=== PATIENT | female | born 1990 | race Caucasian/White ===

== ENCOUNTER 2017-07-18 12:30 | Emergency (ER) | payer SELFPAY ==
[2017-07-18] MEDS ORDERED: IPRATROPIUM/ALBUTEROL 0.5-2.5 MG/3 ML AMPUL NEB ONE (12:52)
[2017-07-18] MEDS ORDERED: PREDNISONE 20 MG TABLET PO ONE (12:52)
[2017-07-18] MEDS ORDERED: KETOROLAC TROMETHAMINE 60 MG/2 ML SDV IM ONE (12:53)
--- NOTE | 2017-07-18 12:56 | ER Document Report ---
ED General - General Chief Complaint: Cough Stated Complaint: VOMITING,DIARRHEA Time Seen by Provider: 07/18/17 12:37 Mode of Arrival: Ambulatory Information source: Patient Notes: 27-year-old female presents with complaints 1 week duration of cough shortness of breath productive green associated with nausea vomiting diarrhea. Patient denies any fevers or chills. TRAVEL OUTSIDE OF THE [place] IN LAST 30 DAYS: No - HPI Onset: Last week Onset/Duration: Persistent Quality of pain: Cramping Severity: Mild Pain Level: 1 Associated symptoms: Body/muscle aches, Productive cough, Shortness of breath Exacerbated by: Denies Relieved by: Denies Similar symptoms previously: No Recently seen / treated by doctor: No - Related Data Allergies/Adverse Reactions: No Known Allergies Allergy (Verified 07/18/17 12:46) Past Medical History - Social History Smoking Status: Never Smoker Cigarette use (# per day): No Chew tobacco use (# tins/day): No Smoking Education Provided: No Frequency of alcohol use: None Drug Abuse: Marijuana Family History: Reviewed & Not Pertinent Patient has suicidal ideation: No Patient has homicidal ideation: No Pulmonary Medical History: Denies: Hx Tuberculosis Renal/ Medical History: Denies: Hx Ovarian Cysts, Hx Peritoneal Dialysis, Hx Pelvic Inflammatory Disease Malignancy Medical History: Denies: Hx Breast Cancer, Hx Cervical Cancer, Hx Ovarian Cancer GI Medical History: Reports: Hx Gastroesophageal Reflux Disease, Hx Ulcer - 2009. Denies: Hx Hiatal Hernia Psychiatric Medical History: Reports: Hx Attention Deficit Hyperactivity Disorder, Hx Bipolar Disorder, Hx Depression Denies: Hx Post Traumatic Stress Disorder, Hx Schizophrenia Infectious Medical History: Denies: Hx HIV Past Surgical History: Reports: Hx Section - x2, Hx Tonsillectomy - Immunizations Hx Diphtheria, Pertussis, Tetanus Vaccination: - unk Review of Systems - Review of Systems Notes: REVIEW OF SYSTEMS: CONSTITUTIONAL : Denies fever, chills, or sweats. Denies recent illness. EENT: Denies eye, ear, throat, or mouth pain or symptoms. Denies nasal or sinus congestion or discharge. Denies throat, tongue, or mouth swelling or difficulty swallowing. CARDIOVASCULAR: Denies chest pain. Denies palpitations or racing or irregular heart beat. Denies ankle edema. RESPIRATORY: admits ot productive cough sob GASTROINTESTINAL: admits ot nausea vomiting GENITOURINARY: Denies difficulty urinating, painful urination, burning, frequency, blood in urine, or discharge. FEMALE GENITOURINARY: Denies vaginal bleeding, heavy or abnormal periods, irregular periods. Denies vaginal discharge or odor. MUSCULOSKELETAL: Denies back or neck pain or stiffness. Denies joint pain or swelling. SKIN: Denies rash, lesions or sores. HEMATOLOGIC : Denies easy bruising or bleeding. LYMPHATIC: Denies swollen, enlarged glands. NEUROLOGICAL: Denies confusion or altered mental status. Denies passing out or loss of consciousness. Denies dizziness or lightheadedness. Denies headache. Denies weakness or paralysis or loss of use of either side. Denies problems with gait or speech. Denies sensory loss, numbness, or tingling. Denies seizures. PSYCHIATRIC: Denies anxiety or stress. Denies depression, suicidal ideation, or homicidal ideation. ALL OTHER SYSTEMS REVIEWED AND NEGATIVE. PHYSICAL EXAMINATION: GENERAL: Well-appearing, well-nourished and in no acute distress. HEAD: Atraumatic, normocephalic. EYES: Pupils equal round and reactive to light, extraocular movements intact, conjunctiva are normal. ENT: Nares patent, oropharynx clear without exudates. Moist mucous membranes. NECK: Normal range of motion, supple without lymphadenopathy LUNGS: Decreased breath sounds all throughout HEART: Regular rate and rhythm without murmurs ABDOMEN: Soft, nontender, nondistended abdomen. No guarding, no rebound. No masses appreciated. Female : deferred Musculoskeletal: Normal range of motion, no pitting or edema. No cyanosis. NEUROLOGICAL: Cranial nerves grossly intact. Normal speech, normal gait. Normal sensory, motor exams PSYCH: Normal mood, normal affect. SKIN: Warm, Dry, normal turgor, no rashes or lesions noted. Dictation was performed using [employer] voice recognition software Physical Exam - Vital signs Vitals: Temp Pulse Resp BP Pulse Ox 98 F 103 H 16 120/88 H 98 07/18/17 12:32 07/18/17 12:32 07/18/17 12:32 07/18/17 12:32 07/18/17 12:32 Course - Re-evaluation Re-evalutation: 07/18/17 12:55 Patient has probable pneumonia versus bronchitis, she is no DVT PE risk factors , influenza chest x-ray pending - Vital Signs Vital signs: Temp Pulse Resp BP Pulse Ox 98 F 103 H 16 120/88 H 98 07/18/17 12:32 07/18/17 12:32 07/18/17 12:32 07/18/17 12:32 07/18/17 12:32 Discharge - Discharge Clinical Impression: Bronchitis, SOB (shortness of breath) Instructions: Bronchitis With Bronchospasm (Wheezing) ([facility]), Bronchitis ([facility]) Additional Instructions: Follow up with your physician tomorrow for further care or return to the ED IMMEDIATELY if symptoms worsen or new concerns occur. If you cannot afford to follow up with your primary care physician a list of low cost clinics have been provided at the end of your discharge papers as well. Prescriptions: Azithromycin 250 mg PO DAILY #6 tablet Prednisone 60 mg PO DAILY 5 Days tablet Forms: Return to Work
--- NOTE | 2017-07-18 14:46 | RADIOLOGY REPORT (SQ) ---
EXAM DESCRIPTION: CHEST PA/LAT COMPLETED DATE/TIME: 07/18/2017 2:34 pm REASON FOR STUDY: COUGH, SOB COMPARISON: 2013. TECHNIQUE: Frontal and lateral radiographic views of the chest acquired. NUMBER OF VIEWS: Two view. LIMITATIONS: None. FINDINGS: LUNGS AND PLEURA: No opacities, masses or pneumothorax. No pleural effusion. MEDIASTINUM AND HILAR STRUCTURES: No masses or contour abnormalities. HEART AND VASCULAR STRUCTURES: Heart normal size. No evidence for failure. BONES: No acute findings. HARDWARE: None in the chest. OTHER: No other significant finding. IMPRESSION: NO SIGNIFICANT RADIOGRAPHIC FINDING IN THE CHEST. TECHNICAL DOCUMENTATION: JOB ID: [id number] [employer]- All Rights Reserved
[2017-07-18] MEDS ORDERED: ALBUTEROL SULFATE HFA (90 MCG/PUFF) 8 GM MDI (1 MDI/ER DISP) IH PRN (15:02)
[2017-07-18 15:07] VITALS: BP 103/68
== END 2017-07-18 15:15 | disposition home or self-care (01) ==
LOC: ER 12:30
DX: J40 Bronchitis, not specified as acute or chronic (principal); R05 Cough; R06.02 Shortness of breath; R11.2 Nausea with vomiting, unspecified; R19.7 Diarrhea, unspecified; M79.1 Myalgia; Z87.19 Personal history of other diseases of the digestive system
CPT/HCPCS: 94640; 99284; 96372; 87804; 71020; J1885; J7512; J3490; J7620

== ENCOUNTER 2018-05-23 21:17 | Emergency (ER) | payer MEDICAID, OTHER ==
[2018-05-23 21:51] LABS: ABSOLUTE LYMPHOCYTES (AUTO) 1.6 10^3/uL (0.5-4.7); ABSOLUTE MONOCYTES (AUTO) 0.5 10^3/uL (0.1-1.4); ABSOLUTE NEUT (AUTO) 3.9 10^3/uL (1.7-8.2); BASOPHILS % (AUTO) 0.3 % (0-2); EOSINOPHILS % (AUTO) 0.5 % (0-6); HEMATOCRIT 37.9 % (36.0-47.0); HEMOGLOBIN 12.9 g/dL (12.0-15.5); LYMPHOCYTES % (AUTO) 25.7 % (13-45); MEAN CORPUSCULAR HEMOGLOBIN 30.9 pg (27.0-33.4); MEAN CORPUSCULAR HGB CONC 34.1 g/dL (32.0-36.0); MEAN CORPUSCULAR VOLUME 91 fl (80-97); MONOCYTES % (AUTO) 8.4 % (3-13); PLATELET COUNT 250 10^3/uL (150-450); RED BLOOD COUNT 4.18 10^6/uL (3.72-5.28); RED CELL DISTRIBUTION WIDTH 12.8 % (11.5-14.0); SEGMENTED NEUTROPHILS % (AUTO) 65.1 % (42-78); TOTAL CELLS COUNTED % (AUTO) 100 %
[2018-05-23 22:00] LABS: APPEARANCE,URINE SLIGHTLY-CLOUDY; BILIRUBIN,URINE NEGATIVE (NEGATIVE); COLOR,URINE YELLOW; GLUCOSE, URINE >=500 mg/dL (NEGATIVE); KETONES,URINE TRACE mg/dL (NEGATIVE); LEUKOCYTE ESTERASE,URINE NEGATIVE (NEGATIVE); NITRITE,URINE NEGATIVE (NEGATIVE); PROTEIN,URINE NEGATIVE (NEGATIVE); URINE SPECIFIC GRAVITY 1.023; UROBILINOGEN,URINE NEGATIVE mg/dL (<2.0)
--- NOTE | 2018-05-23 23:09 | ER Document Report ---
ED General - General Chief Complaint: OB Problem (<20wks) Stated Complaint: VAGINAL BLEEDING Time Seen by Provider: 05/23/18 23:05 TRAVEL OUTSIDE OF THE [place] IN LAST 30 DAYS: No - HPI Notes: Patient is a 28-year-old female approximately 6 weeks who presents to the ED complaining of vaginal bleeding that began this evening. Patient states that she is still eating and drinking without any difficulties. She is urinating normally and having normal bowel movements. She denies any drug allergies or other significant past medical history. Denies any IV drug use. Denies any headache, fever, URI, sore throat, chest pain, palpitations, syncope, cough, shortness of breath, wheeze, dyspnea, abd pain, nausea/vomiting/ diarrhea, urinary retention, dysuria, hematuria, back pain, loss of control of bowel or bladder, numbness/tingling, saddle anesthesia, muscle paralysis/ weakness, or rash. - Related Data Allergies/Adverse Reactions: No Known Allergies Allergy (Verified 07/18/17 12:46) Past Medical History - Social History Smoking Status: Unknown if Ever Smoked Family History: Reviewed & Not Pertinent Pulmonary Medical History: Denies: Hx Tuberculosis Renal/ Medical History: Denies: Hx Ovarian Cysts, Hx Peritoneal Dialysis, Hx Pelvic Inflammatory Disease Malignancy Medical History: Denies: Hx Breast Cancer, Hx Cervical Cancer, Hx Ovarian Cancer GI Medical History: Reports: Hx Gastroesophageal Reflux Disease, Hx Ulcer - 2008. Denies: Hx Hiatal Hernia Psychiatric Medical History: Reports: Hx Attention Deficit Hyperactivity Disorder, Hx Bipolar Disorder, Hx Depression Denies: Hx Post Traumatic Stress Disorder, Hx Schizophrenia Infectious Medical History: Denies: Hx HIV Past Surgical History: Reports: Hx Section - x2, Hx Tonsillectomy - Immunizations Hx Diphtheria, Pertussis, Tetanus Vaccination: - unk Review of Systems - Review of Systems -: Yes All other systems reviewed and negative Physical Exam - Vital signs Vitals: Temp Pulse Resp BP Pulse Ox 98.5 F 91 16 110/65 99 05/23/18 21:34 05/23/18 21:34 05/23/18 21:34 05/23/18 21:34 05/23/18 21:34 - Notes Notes: PHYSICAL EXAMINATION: GENERAL: Well-appearing, well-nourished and in no acute distress. NECK: Normal range of motion, supple without lymphadenopathy LUNGS: Breath sounds clear to auscultation bilaterally and equal. No wheezes rales or rhonchi. HEART: Regular rate and rhythm without murmurs, rubs, gallops. ABDOMEN: Soft, nontender, nondistended abdomen. No guarding, no rebound. No masses appreciated. Normal bowel sounds present. No CVA tenderness bilaterally. : deferred Extremities: No cyanosis, clubbing, or edema b/l. Peripheral pulses 2+. Capillary refill less than 3 seconds. NEUROLOGICAL: Normal speech, normal gait. PSYCH: Normal mood, normal affect. SKIN: Warm, Dry, normal turgor, no rashes or lesions noted. Course - Re-evaluation Re-evalutation: 05/24/18 03:12 Patient is an afebrile, well-hydrated, 28-year-old female who presents to the ED with a gestational sac is approximately 5 weeks and 3 days. Vitals are acceptable without any significant tachycardia, tachypnea, or hypoxia. PE is otherwise unremarkable. Patient's abdomen is soft and nontender. CBC, CMP, urinalysis were unremarkable for any acute pathology. HCG correlates with the transvaginal ultrasound which was unremarkable for acute pathology. This is an early and continued monitoring will need to be performed. Patient is nontoxic-appearing and is tolerating p.o. without difficulties. No other labs or imaging warranted at this time based on H&P. Low suspicion for acute appendicitis, bowel obstruction, acute cholecystitis, acute cholangitis, perforated diverticulitis, incarcerated hernia, pancreatitis, perforated ulcer, peritonitis, sepsis, pelvic inflammatory disease, ectopic , tubo- ovarian abscess, ovarian torsion, or other systemic emergent condition at this time. Patient is aware that her condition can change from initial presentation and she needs to monitor symptoms closely and seek medical attention if any acute changes. Conservative measures otherwise for symptoms. Recheck with OBGYN in 3-5 days. Recheck with your PCM in 3-5 days. Return to the ED with any worsening/concerning symptoms otherwise as reviewed in discharge. Patient is in agreement. - Vital Signs Vital signs: Temp Pulse Resp BP Pulse Ox 98.5 F 91 16 110/65 99 05/23/18 21:34 05/23/18 21:34 05/23/18 21:34 05/23/18 21:34 05/23/18 21:34 - Laboratory Result Diagrams: 05/23/18 21:25 05/23/18 21:25 Laboratory results interpreted by me: 05/23/18 05/23/18 21:25 21:25 Beta HCG, Quant 1560.50 H Urine Glucose (UA) >=500 H Urine Ketones TRACE H Urine Blood MODERATE H Urine Ascorbic Acid 40 H Discharge - Discharge Clinical Impression: Bleeding in early Condition: Stable Disposition: HOME, SELF-CARE Instructions: Bleeding During Early ([facility]) Additional Instructions: Maintain adequate fluid intake Healthy diet Proper hygenic technique Keep the skin clean Tylenol as needed Monitor symptoms closely for any acute changes Take medications as directed F/u with your PCM/HOME ADVISOR in 3-5 days for a recheck Return to the ED with any worsening symptoms and/or development of fever, headache, chest pain, palpitations, syncope, shortness of breath, trouble breathing, abdominal pain, n/v/d, blood in stool/urine, loss of control of bowel /bladder, urinary retention, or other worsening symptoms that are concerning to you. Prescriptions: Ondansetron [Zofran Odt 4 mg Tablet] 1 - 2 tab PO Q4H PRN #15 tab.rapdis PRN Reason: For Nausea/Vomiting Referrals: [facility] [Provider Group] - Follow up in 3-5 days
[2018-05-24 00:01] LABS: ALANINE AMINOTRANSFERASE 22 U/L (9-52); ALBUMIN 4.4 g/dL (3.5-5.0); ALKALINE PHOSPHATASE 38 U/L (38-126); ANION GAP 15 (5-19); ASPARTATE AMINO TRANSFERASE 25 U/L (14-36); BILIRUBIN,DIRECT 0.3 mg/dL (0.0-0.4); BILIRUBIN,TOTAL 0.3 mg/dL (0.2-1.3); BLOOD UREA NITROGEN 9 mg/dL (7-20); CALCIUM 9.1 mg/dL (8.4-10.2); CARBON DIOXIDE 23 mmol/L (22-30); CHLORIDE 103 mmol/L (98-107); GLUCOSE 102 mg/dL (75-110); SODIUM 140.9 mmol/L (137-145); TOTAL PROTEIN 7.3 g/dL (6.3-8.2)
--- NOTE | 2018-05-24 03:09 | RADIOLOGY REPORT (SQ) ---
EXAM DESCRIPTION: US TRANSVAGINAL COMPLETED DATE/TME: 05/23/2018 23:06 CLINICAL HISTORY: 28 years, Female, , bleeding LMP is unknown. Beta hCG of 1560.50 COMPARISON: None. TECHNIQUE: Complete first trimester obstetrical ultrasound obtained with transvaginal imaging. FINDINGS: The uterus measures 8.2 x 6.3 x 5.2 cm. Within the uterus there is a gestational sac measuring 0.66 cm compatible with an estimated gestational age of 5 weeks, 3 days. No yolk sac or pole identified. No myometrial abnormalities. Cervical length of 2.0 cm. Small amount of free pelvic fluid. The right ovary measures 2.5 x 1.4 x 1.5 cm. Left ovary measures 2.6 x 1.5 x 1.4 cm. Limited color and spectral Doppler imaging demonstrates flow within the ovaries bilaterally. IMPRESSION: 1. Gestational sac within the endometrial canal with an estimated gestational age of 5 weeks, 3 days. No pole or yolk sac identified. Differential considerations include early normal and anembryonic . Close continued clinical, sonographic and laboratory follow-up recommended. 2011 [employer]- All Rights Reserved
[2018-05-24 03:32] VITALS: BP 108/73
== END 2018-05-24 04:00 | disposition home or self-care (01) ==
LOC: ER 21:17
DX: O46.91 Antepartum hemorrhage, unspecified, first trimester (principal); Z3A.01 Less than 8 weeks gestation of pregnancy
CPT/HCPCS: 36415; 76817; 80053; 81001; 84702; 85025; 86900; 86901; 93976; 99284

== ENCOUNTER 2018-05-30 08:54 | Emergency (ER) | payer MEDICAID, OTHER ==
[2018-05-30 10:33] LABS: ABSOLUTE EOSINOPHILS # (AUTO) 0.1 10^3/uL (0.0-0.6); ABSOLUTE LYMPHOCYTES (AUTO) 1.6 10^3/uL (0.5-4.7); ABSOLUTE MONOCYTES (AUTO) 0.4 10^3/uL (0.1-1.4); BASOPHILS % (AUTO) 0.5 % (0-2); HEMATOCRIT 39.2 % (36.0-47.0); HEMOGLOBIN 13.4 g/dL (12.0-15.5); LYMPHOCYTES % (AUTO) 17.7 % (13-45); MEAN CORPUSCULAR HEMOGLOBIN 30.6 pg (27.0-33.4); MEAN CORPUSCULAR HGB CONC 34.3 g/dL (32.0-36.0); MEAN CORPUSCULAR VOLUME 89 fl (80-97); MONOCYTES % (AUTO) 4.4 % (3-13); PLATELET COUNT 294 10^3/uL (150-450); RED BLOOD COUNT 4.39 10^6/uL (3.72-5.28); RED CELL DISTRIBUTION WIDTH 12.5 % (11.5-14.0); SEGMENTED NEUTROPHILS % (AUTO) 76.4 % (42-78); TOTAL CELLS COUNTED % (AUTO) 100 %; WHITE BLOOD COUNT 9.2 10^3/uL (4.0-10.5)
[2018-05-30 10:39] LABS: ALANINE AMINOTRANSFERASE 26 U/L (9-52); ALBUMIN 4.5 g/dL (3.5-5.0); ALKALINE PHOSPHATASE 42 U/L (38-126); ANION GAP 12 (5-19); ASPARTATE AMINO TRANSFERASE 23 U/L (14-36); BILIRUBIN,DIRECT 0.3 mg/dL (0.0-0.4); BILIRUBIN,TOTAL 0.5 mg/dL (0.2-1.3); BLOOD UREA NITROGEN 14 mg/dL (7-20); CALCIUM 9.3 mg/dL (8.4-10.2); CARBON DIOXIDE 26 mmol/L (22-30); CHLORIDE 104 mmol/L (98-107); GLUCOSE 89 mg/dL (75-110); POTASSIUM 4.4 mmol/L (3.6-5.0); SODIUM 141.5 mmol/L (137-145); TOTAL PROTEIN 7.7 g/dL (6.3-8.2)
--- NOTE | 2018-05-30 11:09 | ER Document Report ---
ED General - General Chief Complaint: Vag Bleeding, +preg <12wks Stated Complaint: VAGINAL BLEEDING Time Seen by Provider: 05/30/18 10:19 Mode of Arrival: Ambulatory Information source: Patient Notes: 28-year-old female 3 para 2 who was seen here approximately a week ago with concerns of vaginal bleeding notes that she has had continued bleeding throughout. She denies any large clots. TRAVEL OUTSIDE OF THE [place] IN LAST 30 DAYS: No - HPI Onset: Last week Onset/Duration: Persistent Quality of pain: Cramping Severity: Mild Pain Level: 1 Associated symptoms: Other Exacerbated by: Denies Relieved by: Denies Similar symptoms previously: Yes Recently seen / treated by doctor: Yes - Related Data Allergies/Adverse Reactions: No Known Allergies Allergy (Verified 05/30/18 08:57) Past Medical History - General Last Menstrual Period: march 2018 - Social History Smoking Status: Never Smoker Cigarette use (# per day): No Chew tobacco use (# tins/day): No Smoking Education Provided: No Family History: Reviewed & Not Pertinent Patient has suicidal ideation: No Patient has homicidal ideation: No Pulmonary Medical History: Denies: Hx Tuberculosis Renal/ Medical History: Denies: Hx Ovarian Cysts, Hx Peritoneal Dialysis, Hx Pelvic Inflammatory Disease Malignancy Medical History: Denies: Hx Breast Cancer, Hx Cervical Cancer, Hx Ovarian Cancer GI Medical History: Reports: Hx Gastroesophageal Reflux Disease, Hx Ulcer - 2008. Denies: Hx Hiatal Hernia Psychiatric Medical History: Reports: Hx Attention Deficit Hyperactivity Disorder, Hx Bipolar Disorder, Hx Depression Denies: Hx Post Traumatic Stress Disorder, Hx Schizophrenia Infectious Medical History: Denies: Hx HIV Past Surgical History: Reports: Hx Section - x2, Hx Tonsillectomy - Immunizations Hx Diphtheria, Pertussis, Tetanus Vaccination: - unk Review of Systems - Review of Systems Notes: REVIEW OF SYSTEMS: CONSTITUTIONAL : Denies fever, chills, or sweats. Denies recent illness. EENT: Denies eye, ear, throat, or mouth pain or symptoms. Denies nasal or sinus congestion or discharge. Denies throat, tongue, or mouth swelling or difficulty swallowing. CARDIOVASCULAR: Denies chest pain. Denies palpitations or racing or irregular heart beat. Denies ankle edema. RESPIRATORY: Denies cough, cold, or chest congestion. Denies shortness of breath, difficulty breathing, or wheezing. GASTROINTESTINAL: Denies abdominal pain or distention. Denies nausea, vomiting , or diarrhea. Denies blood in vomitus, stools, or per rectum. Denies black, tarry stools. Denies constipation. GENITOURINARY: Denies difficulty urinating, painful urination, burning, frequency, blood in urine, or discharge. FEMALE GENITOURINARY: Admits to vaginal bleeding MUSCULOSKELETAL: Denies back or neck pain or stiffness. Denies joint pain or swelling. SKIN: Denies rash, lesions or sores. HEMATOLOGIC : Denies easy bruising or bleeding. LYMPHATIC: Denies swollen, enlarged glands. NEUROLOGICAL: Denies confusion or altered mental status. Denies passing out or loss of consciousness. Denies dizziness or lightheadedness. Denies headache. Denies weakness or paralysis or loss of use of either side. Denies problems with gait or speech. Denies sensory loss, numbness, or tingling. Denies seizures. PSYCHIATRIC: Denies anxiety or stress. Denies depression, suicidal ideation, or homicidal ideation. ALL OTHER SYSTEMS REVIEWED AND NEGATIVE. PHYSICAL EXAMINATION: GENERAL: Well-appearing, well-nourished and in no acute distress. HEAD: Atraumatic, normocephalic. EYES: Pupils equal round and reactive to light, extraocular movements intact, conjunctiva are normal. ENT: Nares patent, oropharynx clear without exudates. Moist mucous membranes. NECK: Normal range of motion, supple without lymphadenopathy LUNGS: Breath sounds clear to auscultation bilaterally and equal. No wheezes rales or rhonchi. HEART: Regular rate and rhythm without murmurs ABDOMEN: Soft, nontender, nondistended abdomen. No guarding, no rebound. No masses appreciated. Female : deferred Musculoskeletal: Normal range of motion, no pitting or edema. No cyanosis. NEUROLOGICAL: Cranial nerves grossly intact. Normal speech, normal gait. Normal sensory, motor exams PSYCH: Normal mood, normal affect. SKIN: Warm, Dry, normal turgor, no rashes or lesions noted. Dictation was performed using [employer] voice recognition software Physical Exam - Vital signs Vitals: Temp Pulse Resp BP Pulse Ox 98.0 F 78 18 107/64 100 05/30/18 08:58 05/30/18 08:58 05/30/18 08:58 05/30/18 08:58 05/30/18 08:58 Course - Re-evaluation Re-evalutation: 05/30/18 11:09 Patient's presentation is concerning for threatened miscarriage, her hCG quant to go up but has not been doubling as it should ultrasound pending 05/30/18 13:03 Patient's ultrasound does note a heart rate of 120, the hCG did increase, therefore I have low suspicion for miscarriage but that this has been made apparent to family and patient After performing a Medical Screening Examination, I estimate there is LOW risk for ACUTE APPENDICITIS, BOWEL OBSTRUCTION, ACUTE CHOLECYSTITIS, PERFORATED DIVERTICULITIS, INCARCERATED HERNIA, PANCREATITIS, PELVIC INFLAMMATORY DISEASE, PERFORATED ULCER, ECTOPIC , or TUBO-OVARIAN ABSCESS, thus I consider the discharge disposition reasonable. Also, there is no evidence or peritonitis , sepsis, or toxicity. I have reevaluated this patient multiple times and no significant life threatening changes are noted. The patient and I have discussed the diagnosis and risks, and we agree with discharging home with close follow-up with the understanding that symptoms and presentations can change. We also discussed returning to the Emergency Department immediately if new or worsening symptoms occur. We have discussed the symptoms which are most concerning (e.g., bloody stool, fever, changing or worsening pain, vomiting) that necessitate immediate return. - Vital Signs Vital signs: Temp Pulse Resp BP Pulse Ox 98.0 F 78 18 107/64 100 05/30/18 08:58 05/30/18 08:58 05/30/18 08:58 05/30/18 08:58 05/30/18 08:58 - Laboratory Result Diagrams: 05/30/18 09:42 05/30/18 09:42 Laboratory results interpreted by me: 05/30/18 05/30/18 09:42 10:47 Beta HCG, Quant 5488.50 H Urine Ketones TRACE H Discharge - Discharge Clinical Impression: Threatened miscarriage in early Condition: Stable Disposition: HOME, SELF-CARE Instructions: Threatened Miscarriage ([facility]) Additional Instructions: Follow up with your physician tomorrow for further care or return to the ED IMMEDIATELY if symptoms worsen or new concerns occur. If you cannot afford to follow up with your primary care physician a list of low cost clinics have been provided at the end of your discharge papers as well. Referrals: MICHAEL MARIE MD [Primary Care Provider] - Follow up as needed
[2018-05-30 12:05] LABS: APPEARANCE,URINE CLEAR; BILIRUBIN,URINE NEGATIVE (NEGATIVE); COLOR,URINE YELLOW; GLUCOSE, URINE NEGATIVE (NEGATIVE); KETONES,URINE TRACE mg/dL (NEGATIVE); LEUKOCYTE ESTERASE,URINE NEGATIVE (NEGATIVE); NITRITE,URINE NEGATIVE (NEGATIVE); PROTEIN,URINE NEGATIVE (NEGATIVE); URINE SPECIFIC GRAVITY 1.018; UROBILINOGEN,URINE NEGATIVE mg/dL (<2.0)
--- NOTE | 2018-05-30 12:48 | RADIOLOGY REPORT (SQ) ---
EXAM DESCRIPTION: U/S OB TRANSVAGINAL W/O DOP COMPLETED DATE/TIME: 05/30/2018 12:12 pm REASON FOR STUDY: + preg, continued bleeding COMPARISON: None. TECHNIQUE: Transvaginal and transabdominal static and realtime grayscale images acquired of the pelv is. Additional selected spectral and color Doppler images recorded. All images stored on PACs. [facility] [email or web address] CLINICAL DATES: AVA: 01/21/2019 EGA: 6 weeks 2 days LIMITATIONS: None. FINDINGS: FETUS: Living intrauterine . ULTRASOUND EGA: 6 weeks 1 day ULTRASOUND AVA: 01/22/2019 CRL: 0.49 cm FHR: 120 beats per minute. SUBCHORIONIC BLEED: Yes SIZE OF BLEED: Small UTERUS: The uterus measures 8.0 x 5.4 x 5.7 cm. Intra-uterine gestational sac and yolk sac visualiz ed. No masses. No anomalies. CERVICAL LENGTH: 1.6 cm Closed. RIGHT ADNEXA: The right ovary is not visualized due to overlying bowel gas. LEFT ADNEXA: The left ovary measures 3.0 x 2.2 x 2.7 cm, normal ovary with normal vascular flow. No adnexal free fluid. No adnexal masses. FREE FLUID: Small volume of free fluid anterior to the uterus. OTHER: No other significant finding. IMPRESSION: LIVING INTRAUTERINE . EGA 6 weeks 1 day Trimester of : First - 0 to 13 weeks. TECHNICAL DOCUMENTATION: JOB ID: [id number] [employer]- All Rights Reserved rev Reading location - IP/workstation name: [email or web address]
[2018-05-30 13:30] VITALS: BP 105/60
== END 2018-05-30 13:30 | disposition home or self-care (01) ==
LOC: ER 08:54
DX: O20.0 Threatened abortion (principal); Z3A.00 Weeks of gestation of pregnancy not specified
CPT/HCPCS: 36415; 76817; 80053; 81001; 84702; 85025; 99284

== ENCOUNTER 2018-07-16 12:07 | Emergency (ER) | payer MEDICAID ==
[2018-07-16] MEDS ORDERED: METOCLOPRAMIDE HCL INJ/PF 10 MG/2 ML SDV IV ONE (12:19)
[2018-07-16] MEDS ORDERED: NORMAL SALINE 1000 ML 1,000 ML IV ONE (12:19)
[2018-07-16] MEDS ORDERED: DIPHENHYDRAMINE HCL 50 MG/ML VIAL IV ONE (12:19)
[2018-07-16 13:12] LABS: ABSOLUTE EOSINOPHILS # (AUTO) 0.1 10^3/uL (0.0-0.6); ABSOLUTE LYMPHOCYTES (AUTO) 1.3 10^3/uL (0.5-4.7); ABSOLUTE MONOCYTES (AUTO) 0.4 10^3/uL (0.1-1.4); ABSOLUTE NEUT (AUTO) 8.3 10^3/uL (1.7-8.2); BASOPHILS % (AUTO) 0.4 % (0-2); EOSINOPHILS % (AUTO) 0.6 % (0-6); HEMATOCRIT 38.8 % (36.0-47.0); HEMOGLOBIN 13.2 g/dL (12.0-15.5); LYMPHOCYTES % (AUTO) 13.1 % (13-45); MEAN CORPUSCULAR HEMOGLOBIN 30.5 pg (27.0-33.4); MEAN CORPUSCULAR HGB CONC 34.1 g/dL (32.0-36.0); MEAN CORPUSCULAR VOLUME 89 fl (80-97); MONOCYTES % (AUTO) 4.3 % (3-13); PLATELET COUNT 255 10^3/uL (150-450); RED BLOOD COUNT 4.34 10^6/uL (3.72-5.28); RED CELL DISTRIBUTION WIDTH 12.8 % (11.5-14.0); SEGMENTED NEUTROPHILS % (AUTO) 81.6 % (42-78); TOTAL CELLS COUNTED % (AUTO) 100 %; WHITE BLOOD COUNT 10.2 10^3/uL (4.0-10.5)
[2018-07-16 13:20] LABS: APPEARANCE,URINE CLEAR; BILIRUBIN,URINE NEGATIVE (NEGATIVE); COLOR,URINE YELLOW; GLUCOSE, URINE NEGATIVE (NEGATIVE); KETONES,URINE 80 mg/dL (NEGATIVE); LEUKOCYTE ESTERASE,URINE NEGATIVE (NEGATIVE); NITRITE,URINE NEGATIVE (NEGATIVE); PROTEIN,URINE NEGATIVE (NEGATIVE); URINE SPECIFIC GRAVITY 1.025; UROBILINOGEN,URINE NEGATIVE mg/dL (<2.0)
[2018-07-16 13:37] LABS: ALANINE AMINOTRANSFERASE 24 U/L (9-52); ALBUMIN 4.5 g/dL (3.5-5.0); ALKALINE PHOSPHATASE 40 U/L (38-126); ANION GAP 14 (5-19); ASPARTATE AMINO TRANSFERASE 20 U/L (14-36); BILIRUBIN,DIRECT 0.2 mg/dL (0.0-0.4); BILIRUBIN,TOTAL 0.6 mg/dL (0.2-1.3); BLOOD UREA NITROGEN 8 mg/dL (7-20); CALCIUM 9.3 mg/dL (8.4-10.2); CARBON DIOXIDE 22 mmol/L (22-30); CHLORIDE 102 mmol/L (98-107); GLUCOSE 87 mg/dL (75-110); LIPASE 97.9 U/L (23-300); POTASSIUM 4.1 mmol/L (3.6-5.0); TOTAL PROTEIN 7.6 g/dL (6.3-8.2)
[2018-07-16] MEDS ORDERED: DEXTROSE 5%-1/2 NORMAL SALINE 500 ML IV ONE (13:39)
--- NOTE | 2018-07-16 13:43 | ER Document Report ---
ED General - General Chief Complaint: Abdominal Cramping Stated Complaint: CRAMPING, DIZZINESS Time Seen by Provider: 07/16/18 12:16 Notes: 28-year-old female patient to the emergency department for evaluation of nausea , vomiting, diarrhea. Patient states that she is 13 weeks . Just seen an EMPLOYMENT ASSISTANT on and had ultrasound and everything was okay. Has been having intermittent diarrhea for the last month. Has lost 6 pounds since her . Cannot seem to keep anything down. Having some pain now on the left lower quadrant. Thinks that maybe she had some blood in her stool as well. TRAVEL OUTSIDE OF THE [place] IN LAST 30 DAYS: No - HPI Onset/Duration: Gradual, Worse Quality of pain: Achy Severity: Moderate Pain Level: 3 Associated symptoms: Diarrhea, Vomiting - Related Data Allergies/Adverse Reactions: No Known Allergies Allergy (Verified 07/16/18 12:13) Past Medical History - General Information source: Patient - Social History Smoking Status: Never Smoker Cigarette use (# per day): No Frequency of alcohol use: None Drug Abuse: None Lives with: Family Family History: Reviewed & Not Pertinent Patient has suicidal ideation: No Patient has homicidal ideation: No Pulmonary Medical History: Denies: Hx Tuberculosis Renal/ Medical History: Denies: Hx Ovarian Cysts, Hx Peritoneal Dialysis, Hx Pelvic Inflammatory Disease Malignancy Medical History: Denies: Hx Breast Cancer, Hx Cervical Cancer, Hx Ovarian Cancer GI Medical History: Reports: Hx Gastroesophageal Reflux Disease, Hx Ulcer - 2008. Denies: Hx Hiatal Hernia Psychiatric Medical History: Reports: Hx Attention Deficit Hyperactivity Disorder, Hx Bipolar Disorder, Hx Depression Denies: Hx Post Traumatic Stress Disorder, Hx Schizophrenia Infectious Medical History: Denies: Hx HIV Past Surgical History: Reports: Hx Section - x2, Hx Tonsillectomy - Immunizations Hx Diphtheria, Pertussis, Tetanus Vaccination: - unk Review of Systems - Review of Systems Constitutional: denies: Fever, Malaise, Weakness EENT: denies: Blurred vision, Difficulty swallowing, Throat swelling Cardiovascular: denies: Chest pain, Palpitations, Heart racing Respiratory: denies: Cough, Hurts to breathe, Short of breath Gastrointestinal: Abdominal pain, Diarrhea, Nausea, Vomiting Genitourinary: denies: Burning, Dysuria, Discharge Female Genitourinary: . denies: Vaginal discharge, Vaginal bleeding Musculoskeletal: denies: Back pain, Joint pain, Muscle pain, Leg swelling Skin: denies: Dryness, Lesions, Lumps, Rash Hematologic/Lymphatic: denies: Blood clots, Easy bleeding, Easy bruising Neurological/Psychological: denies: Confusion, Weakness, Numbness Physical Exam - Vital signs Vitals: Temp Pulse Resp BP Pulse Ox 97.5 F 67 20 98/63 L 100 07/16/18 12:10 07/16/18 12:10 07/16/18 12:10 07/16/18 12:10 07/16/18 12:10 Interpretation: Normal - General General appearance: Appears well, Alert - HEENT Head: Normocephalic, Atraumatic Eyes: Normal Pupils: PERRL - Respiratory Respiratory status: No respiratory distress Chest status: Nontender Breath sounds: Normal Chest palpation: Normal - Cardiovascular Rhythm: Regular Heart sounds: Normal auscultation Murmur: No - Abdominal Inspection: Normal Distension: No distension Bowel sounds: Normal Tenderness: Tender - Mild non-guarding tenderness left lower quadrant Organomegaly: No organomegaly - Back Back: Normal, Nontender - Extremities General upper extremity: Normal inspection, Nontender, Normal color, Normal ROM , Normal temperature General lower extremity: Normal inspection, Nontender, Normal color, Normal ROM , Normal temperature, Normal weight bearing. No: Tl's sign - Neurological Neuro grossly intact: Yes Cognition: Normal Orientation: AAOx4 [place] Coma Scale Eye Opening: Spontaneous [place] Coma Scale Verbal: Oriented [place] Coma Scale Motor: Obeys Commands Javier Coma Scale Total: 15 Speech: Normal Motor strength normal: LUE, RUE, LLE, RLE Sensory: Normal - Psychological Associated symptoms: Normal affect, Normal mood - Skin Skin Temperature: Warm Skin Moisture: Dry Skin Color: Normal Course - Re-evaluation Re-evalutation: 07/16/18 15:15 Laboratory 07/16/18 07/16/18 07/16/18 12:39 12:39 12:39 WBC 10.2 RBC 4.34 Hgb 13.2 Hct 38.8 MCV 89 MCH 30.5 MCHC 34.1 RDW 12.8 Plt Count 255 Seg Neutrophils % 81.6 H Lymphocytes % 13.1 Monocytes % 4.3 Eosinophils % 0.6 Basophils % 0.4 Absolute Neutrophils 8.3 H Absolute Lymphocytes 1.3 Absolute Monocytes 0.4 Absolute Eosinophils 0.1 Absolute Basophils 0.0 Sodium 138.0 Potassium 4.1 Chloride 102 Carbon Dioxide 22 Anion Gap 14 BUN 8 Creatinine 0.46 L Est GFR ( Amer) > 60 Est GFR (Non-Af Amer) > 60 Glucose 87 Calcium 9.3 Total Bilirubin 0.6 Direct Bilirubin 0.2 Neonat Total Bilirubin Not Reportable Neonat Direct Bilirubin Not Reportable Neonat Indirect Bili Not Reportable AST 20 ALT 24 Alkaline Phosphatase 40 Total Protein 7.6 Albumin 4.5 Lipase 97.9 Beta HCG, Quant 33625.00 H Total Beta HCG POSITIVE Urine Color YELLOW Urine Appearance CLEAR Urine pH 5.0 Ur Specific [place] 1.025 Urine Protein NEGATIVE Urine Glucose (UA) NEGATIVE Urine Ketones 80 H Urine Blood SMALL H Urine Nitrite NEGATIVE Urine Bilirubin NEGATIVE Urine Urobilinogen NEGATIVE Ur Leukocyte Esterase NEGATIVE Urine WBC (Auto) 10 Urine RBC (Auto) >182 Urine Bacteria (Auto) TRACE Squamous Epi Cells Auto 3 Urine Mucus (Auto) FEW Urine Ascorbic Acid NEGATIVE Obstetrics Ultrasound 07/16/18 12:19 IMPRESSION: LIVING INTRAUTERINE . EGA 01/17/2019 Trimester of : First - 0 to 13 weeks. Patient feeling much better at this time. Patient does have significant amount of red blood cells in her urine. Will add a culture. There is always a possibility that this could represent a kidney stone. Patient does not have any significant flank pain at this time. Ultrasound was unremarkable. Will DC shortly. Of note, I did discuss the pros and cons of her being on Zofran while . Obviously the diglegis is not working. Patient would feel more comfortable with some Zofran and I have no problem prescribing it. 07/16/18 16:47 Patient did have large amount of blood in the urine. Ultrasound was unremarkable. At this time feeling much better. Tolerating p.o. Will DC. 07/16/18 16:49 Obstetrics Ultrasound 07/16/18 12:19 IMPRESSION: LIVING INTRAUTERINE . EGA 01/17/2019 Trimester of : First - 0 to 13 weeks. Renal Ultrasound 07/16/18 15:18 IMPRESSION: NORMAL RENAL AND BLADDER ULTRASOUND. - Vital Signs Vital signs: Temp Pulse Resp BP Pulse Ox 97.5 F 67 20 98/63 L 100 07/16/18 12:10 07/16/18 12:10 07/16/18 12:10 07/16/18 12:10 07/16/18 12:10 - Laboratory Result Diagrams: 07/16/18 12:39 07/16/18 12:39 Laboratory results interpreted by me: 07/16/18 07/16/18 07/16/18 12:39 12:39 12:39 Seg Neutrophils % 81.6 H Absolute Neutrophils 8.3 H Creatinine 0.46 L Beta HCG, Quant 30648.00 H Urine Ketones 80 H Urine Blood SMALL H Discharge - Discharge Clinical Impression: Hyperemesis gravidarum Hematuria Qualifiers: Hematuria type: unspecified type Qualified Code(s): R31.9 - Hematuria, unspecified Condition: Good Disposition: HOME, SELF-CARE Instructions: Hematuria ([facility]) Additional Instructions: Hyperemesis Gravidarum Hyperemesis gravidarum is the medical term for severe vomiting during . We don't know exactly why it occurs, but it's a common problem. Dehydration can occur. This reduces blood flow to the placenta, decreasing the baby's nourishment. The baby will also become dehydrated. There can be harmful changes in blood sodium, potassium, or acid balance. Our goal is to correct, and prevent, dehydration. For severe cases, we give IV fluids. Antinausea medication will be prescribed. (Don't be concerned about " defects" -- the risk to you and your baby from the hyperemesis is the biggest problem. The antinausea medication is very safe at this stage of .) Call the doctor if you have vaginal bleeding, abdominal pain, severe lightheadedness or weakness, or other alarming symptoms. Prescriptions: Ondansetron [Zofran Odt 4 mg Tablet] 1 tab PO Q6H PRN #9 tab.rapdis PRN Reason: For Nausea/Vomiting
--- NOTE | 2018-07-16 14:06 | ER Document Report ---
ED Medical Screen (RME) - General Chief Complaint: Abdominal Cramping Stated Complaint: CRAMPING, DIZZINESS Time Seen by Provider: 07/16/18 12:16 TRAVEL OUTSIDE OF THE [place] IN LAST 30 DAYS: No - HPI Notes: 07/16/18 14:06 with abdominal cramping - Related Data Allergies/Adverse Reactions: No Known Allergies Allergy (Verified 07/16/18 12:13) Past Medical History - Social History Cigarette use (# per day): No Frequency of alcohol use: None Drug Abuse: None Pulmonary Medical History: Denies: Hx Tuberculosis Renal/ Medical History: Denies: Hx Ovarian Cysts, Hx Peritoneal Dialysis, Hx Pelvic Inflammatory Disease Malignancy Medical History: Denies: Hx Breast Cancer, Hx Cervical Cancer, Hx Ovarian Cancer GI Medical History: Reports: Hx Gastroesophageal Reflux Disease, Hx Ulcer - 2008. Denies: Hx Hiatal Hernia Psychiatric Medical History: Reports: Hx Attention Deficit Hyperactivity Disorder, Hx Bipolar Disorder, Hx Depression Denies: Hx Post Traumatic Stress Disorder, Hx Schizophrenia Infectious Medical History: Denies: Hx HIV Past Surgical History: Reports: Hx Section - x2, Hx Tonsillectomy - Immunizations Hx Diphtheria, Pertussis, Tetanus Vaccination: - unk Review of Systems - Review of Systems Constitutional: Other - Abdominal cramping Physical Exam - Vital signs Vitals: Temp Pulse Resp BP Pulse Ox 97.5 F 67 20 98/63 L 100 07/16/18 12:10 07/16/18 12:10 07/16/18 12:10 07/16/18 12:10 07/16/18 12:10 - General General appearance: Other - Crying in triage - HEENT Head: Normocephalic Eyes: Normal - Respiratory Respiratory status: No respiratory distress Chest status: Nontender Breath sounds: Normal Chest palpation: Normal Course - Vital Signs Vital signs: Temp Pulse Resp BP Pulse Ox 97.5 F 67 20 98/63 L 100 07/16/18 12:10 07/16/18 12:10 07/16/18 12:10 07/16/18 12:10 07/16/18 12:10 - Laboratory Result Diagrams: 07/16/18 12:39 07/16/18 12:39 Laboratory results interpreted by me: 07/16/18 07/16/18 12:39 12:39 Seg Neutrophils % 81.6 H Absolute Neutrophils 8.3 H Urine Ketones 80 H Urine Blood SMALL H
--- NOTE | 2018-07-16 14:52 | RADIOLOGY REPORT (SQ) ---
EXAM DESCRIPTION: U/S OB TRANSVAGINAL W/O DOP COMPLETED DATE/TIME: 07/16/2018 1:59 pm REASON FOR STUDY: abd cramping COMPARISON: None. TECHNIQUE: Transvaginal static and realtime grayscale images acquired of the pelvis. Additional mary cted spectral and color Doppler images recorded. All images stored on PACs. bHCG: Not available CLINICAL DATES: Last menses 04/16/2018 LIMITATIONS: None. FINDINGS: FETUS: Living intrauterine . ULTRASOUND EGA: 13 weeks 4 days ULTRASOUND AVA: 01/17/2019 CRL: 7.45 cm FHR: 153 beats per minute beats per minute. SUBCHORIONIC BLEED: None SIZE OF BLEED: Not applicable. UTERUS: No masses. No anomalies. Uterus is 12 x 11 x 9 cm size CERVICAL LENGTH: 5 cm Closed. RIGHT ADNEXA: Ovary not visualized. No adnexal free fluid.No adnexal masses. LEFT ADNEXA: Ovary not visualized.No adnexal free fluid.No adnexal masses. FREE FLUID: None. OTHER: No other significant finding. IMPRESSION: LIVING INTRAUTERINE . EGA 01/17/2019 Trimester of : First - 0 to 13 weeks. TECHNICAL DOCUMENTATION: JOB ID: [id number] [employer]- All Rights Reserved rev Reading location - IP/workstation name: [email or web address]
[2018-07-16] MEDS ORDERED: DEXTROSE 5%-1/2 NORMAL SALINE 500 ML IV PRN (15:14)
--- NOTE | 2018-07-16 16:17 | RADIOLOGY REPORT (SQ) ---
EXAM DESCRIPTION: U/S RETROPERITON (RENAL/AORTA) COMPLETED DATE/TIME: 07/16/2018 3:54 pm REASON FOR STUDY: hematuria, LLQ pain COMPARISON: None. TECHNIQUE: Dynamic and static grayscale images acquired of the kidneys and bladder and recorded on P ACS. Additional selected color Doppler and spectral images recorded. LIMITATIONS: None. FINDINGS: RIGHT KIDNEY: Normal size, 11 cm in length. Normal echogenicity. No solid or suspicious ma sses. No hydronephrosis. No calcifications. LEFT KIDNEY: Normal size, 12 cm in length. Normal echogenicity. No solid or suspicious masses. No hy dronephrosis. No calcifications. BLADDER: No masses. OTHER FINDINGS: No other significant finding. IMPRESSION: NORMAL RENAL AND BLADDER ULTRASOUND. TECHNICAL DOCUMENTATION: JOB ID: [id number] [employer]- All Rights Reserved Reading location - IP/workstation name: [email or web address]
[2018-07-16 17:22] VITALS: BP 100/56
== END 2018-07-16 17:24 | disposition home or self-care (01) ==
LOC: ER 12:07
DX: O21.0 Mild hyperemesis gravidarum (principal); O26.891 Other specified pregnancy related conditions, first trimester; R31.9 Hematuria, unspecified; R19.7 Diarrhea, unspecified; R10.32 Left lower quadrant pain; R42 Dizziness and giddiness; Z3A.13 13 weeks gestation of pregnancy
CPT/HCPCS: 99284; 96361; 96374; 96375; 36415; 87086; 84702; 83690; 85025; 80053; 81001; 76817; 76770; J1200; J2765; J7070; J7030

== ENCOUNTER 2019-04-20 17:15 | Emergency (ER) | payer SELFPAY ==
--- NOTE | 2019-04-20 18:34 | ER Document Report ---
HPI - HPI Patient complains to provider of: Cough body aches fever sore throat since yesterday Time Seen by Provider: 04/20/19 18:14 Onset: Yesterday Onset/Duration: Intermittent Quality of pain: Achy Pain Level: 3 Context: 29-year-old female presented to ED with HER-2 children for cough congestion body aches headache and she states she had a subjective fever. She did not check her temperature. She states her symptoms started yesterday her younger child started this morning and her older child started 2 days ago. The older child has been having fevers as well the rest of them have not. Patient is alert oriented respirations regular and unlabored speaking in full sentences walks with a even steady gait. Associated Symptoms: Nonproductive cough, Rhinnorhea, Sinus pain/drainage Exacerbated by: Denies Relieved by: Denies Similar symptoms previously: Yes Recently seen / treated by doctor: No - ROS ROS below otherwise negative: Yes - CONSTITUTIONAL Constitutional: REPORTS: Fever, Chills - EENT EENT: REPORTS: Sore Throat, Nasal Drainage-Clear, Congestion - NEURO Neurology: REPORTS: Headache - CARDIOVASCULAR Cardiovascular: DENIES: Chest pain - RESPIRATORY Respiratory: REPORTS: Coughing. DENIES: Trouble Breathing - GASTROINTESTINAL Gastrointestinal: DENIES: Abdominal Pain, Nausea, Patient vomiting, Diarrhea, Constipation, Black / Bloody Stools - URINARY Urinary: DENIES: Dysuria, Urgency, Frequency - REPRODUCTIVE Reproductive: DENIES: :, Postmenopausal, Abnormal bleeding / discharge - MUSCULOSKELETAL Musculoskeletal: DENIES: Extremity pain - Body aches, Back Pain, Neck Pain, Swelling - DERM Skin Color: Normal Skin Problems: None Past Medical History - General Information source: Patient - Social History Smoking Status: Never Smoker Frequency of alcohol use: Rare Drug Abuse: None Lives with: Family Family History: Reviewed & Not Pertinent Patient has suicidal ideation: No Patient has homicidal ideation: No - Medical History Medical History: Other - Anemia and low blood pressure - Past Medical History Cardiac Medical History: Reports: None Pulmonary Medical History: Reports: None EENT Medical History: Reports: None Neurological Medical History: Reports: None Endocrine Medical History: Reports: None Renal/ Medical History: Reports: Other Malignancy Medical History: Reports: None GI Medical History: Reports: Hx Gastroesophageal Reflux Disease, Hx Ulcer - 2009 Musculoskeletal Medical History: Reports None Skin Medical History: Reports None Psychiatric Medical History: Reports: Hx Attention Deficit Hyperactivity Disorder, Hx Bipolar Disorder, Hx Depression Traumatic Medical History: Reports: None Infectious Medical History: Reports: None Past Surgical History: Reports: Hx Adenoidectomy, Hx Section - x2, Hx Tonsillectomy - Immunizations Hx Diphtheria, Pertussis, Tetanus Vaccination: - unk Vertical Provider Document - CONSTITUTIONAL Agree With Documented VS: Yes Exam Limitations: No Limitations General Appearance: No Apparent Distress - INFECTION CONTROL TRAVEL OUTSIDE OF THE [place] IN LAST 30 DAYS: No - HEENT HEENT: Atraumatic, Normocephalic, PERRLA. negative: Normal ENT Exam - Purulent nasal drainage swelling to the nasal mucosa postnasal drip no swelling or redness to the tonsils no exudate, Pharyngeal Exudate, Pharyngeal Tenderness, Pharyngeal Erythema, Tympanic Membrane Red, Tympanic Membrane Bulging - NECK Neck: Normal Inspection - RESPIRATORY Respiratory: Breath Sounds Normal, No Respiratory Distress, Chest Non-Tender, Other - CARDIOVASCULAR Cardiovascular: Regular Rate, Regular Rhythm, No Murmur - GI/ABDOMEN Gastrointestinal: Abdomen Soft - REPRODUCTIVE Female Genitalia: Normal Inspection - BACK Back: Normal Inspection - MUSCULOSKELETAL/EXTREMETIES Musculoskeletal/Extremeties: MAEW, FROM, Non-Tender - NEURO Level of Consciousness: Awake, Alert, Appropriate - DERM Integumentary: Warm, Dry, No Rash Course - Re-evaluation Re-evalutation: 04/20/19 18:35 After performing a Medical Screening Examination, I estimate there is LOW risk for ACUTE CORONARY SYNDROME, RESPIRATORY FAILURE, SEPSIS OR MENINGITIS, thus I consider the discharge disposition reasonable. I have reevaluated this patient multiple times and no significant life threatening changes are noted. The patient and I have discussed the diagnosis and risks, and we agree with discharging home with close follow-up. We also discussed returning to the Emergency Department immediately if new or worsening symptoms occur. We have discussed the symptoms which are most concerning (e.g., changing or worsening pain, trouble swallowing or breathing, neck stiffness, fever) that necessitate immediate return. This patient also has a viral sore throat. She is with her 2 children. The older child has a sore throat with a fever so I have been strep on mother at the older child. 04/20/19 19:37 Strep test was negative. - Vital Signs Vital signs: Temp Pulse Resp BP Pulse Ox 98.6 F 88 18 114/69 100 04/20/19 17:25 04/20/19 17:25 04/20/19 17:25 04/20/19 17:25 04/20/19 17:25 Discharge - Discharge Clinical Impression: Viral URI, Viral sore throat Condition: Stable Disposition: HOME, SELF-CARE Instructions: Family Physicians / Practices Additional Instructions: SORE THROAT: Sore throats may be caused by viruses, bacteria, or fungi. Most are due to a virus, and must get better on their own. Bacterial sore throats, particularly those due to "strep," need treatment with antibiotics. If an antibiotic is prescribed, be sure to take the medication for a full 10 days. Failure to take the antibiotic can result in complications such as rheumatic fever. Sometimes, an injection of antibiotics is given instead of pills or liquid. This single "shot" is equal in effectiveness to the oral medication. To relieve symptoms, take acetaminophen for pain. Sip clear liquids frequently, or eat popsicles or ice chips. Anesthetic sprays or lozenges may help. Make sure the air in the room is not too dry. Avoid using decongestants or antihistamines. Call the doctor if there is no improvement in two days, or if you have difficulty breathing, increasing throat pain, high fever, rash, or frequent vomiting. UPPER RESPIRATORY ILLNESS: You have a viral infection of the respiratory passages -- a "cold." This common infection causes nasal congestion, drainage, and often sore throat and cough. It is highly contagious. The disease usually lasts about 10 to 14 days. There is no "cure" for the viral infection -- it must run its course. If there is a complication, such as bacterial infection in the nose, sinuses, middle ear, or bronchial tubes, antibiotics may be required. The antibiotics won't affect the virus. Drink plenty of fluids. A humidifier may help. An expectorant medication or decongestant may make you more comfortable. Use acetaminophen or ibuprofen for fever or aches. See the doctor if fever persists over two days, if there is any significant worsening of your symptoms, or if you simply fail to improve as expected. DECONGESTANT MEDICATION: A decongestant medicine has been suggested he do not have to you can just use the door too lazy to wait scribed. Often this medicine is combined in the same tablet with an antihistamine or expectorant. This type of medicine is helpful in treating a bad cold or sinus condition, as well as in treatment of the nasal congestion of hay fever. It is not of much benefit for lung infections. Decongestant medicines are related to stimulants. They can cause an increase in blood pressure and heart rate. Persons with heart disease and high blood pressure should not take decongestants without discussing this with the physician. If you develop palpitations, chest pain, headache, or tremors, stop the medicine and consult your physician. COUGH-SUPPRESSANT & EXPECTORANT MEDICATION: You are to use a cough medication as needed for relief of symptoms. This medicine is a combination of an expectorant (to make the mucous thinner and more easily "coughed up") and a cough suppressant (to reduce the frequency of coughing). The cough-suppressant medicine is related to narcotics. You may experience mild nausea and sleepiness. Some patients who are very sensitive to narcotics may have stomach pain from this medicine. Taking the medicine with food reduces these side effects. Do not drive or work with machinery until you know how this medicine affects you. The expectorant should have no side effects. Iodine-containing expectorants (such as organidin) should not be taken by persons with active thyroid disease unless approved by your doctor. Call the doctor if you develop shortness of breath, hives, rash, itching, lightheadedness, or severe nausea and vomiting. USE OF ACETAMINOPHEN (Tylenol): Acetaminophen may be taken for pain relief or fever control. It's much safer than aspirin, offering a wider range of "safe" dosages. It is safe during . Some brand names are Tylenol, Panadol, Datril, Anacin 3, Tempra, and Liquiprin. Acetaminophen can be repeated every four hours. The following are maximum recommended dosages: >89 pounds or adults 650 mg to 900 mg Acetaminophen can be repeated every four hours. Maximum dose not to exceed 4000 mg a day. You can use Claritin 10 mg Sudafed 30 mg Mucinex 600 mg and Flonase which are all [id number] medications for cough cold congestion symptoms. You can also use salt and soda solution gargles which will help with the sore throat removed and the possible drainage from the back your throat. Salt and soda solution 1 quart of water 1 tablespoon of salt 1 teaspoon of baking soda Mixed 3 ingredients together and boil for 1 minute Placed in a covered quart jar Use 1/2 ounce of cold solution to gargle 3 times a day FOLLOW-UP CARE: If you have been referred to a physician for follow-up care, call the physicians office for an appointment as you were instructed or within the next two days. If you experience worsening or a significant change in your symptoms, notify the physician immediately or return to the Emergency Department at any time for re-evaluation. Forms: Return to Work
[2019-04-20 19:37] VITALS: BP 104/62
== END 2019-04-20 19:38 | disposition home or self-care (01) ==
LOC: ER 17:15
DX: J06.9 Acute upper respiratory infection, unspecified (principal); J02.9 Acute pharyngitis, unspecified; M79.10 Myalgia, unspecified site; R50.9 Fever, unspecified; M54.2 Cervicalgia
CPT/HCPCS: 87070; 87880; 99283

== ENCOUNTER 2019-09-20 08:56 | Emergency (ER) | payer OTHER, MEDICAID ==
[2019-09-20 09:10] VITALS: BP 104/53
[2019-09-20] MEDS ORDERED: IBUPROFEN 800 MG TABLET PO ONE (09:43)
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
== END 2019-09-20 11:39 | disposition home or self-care (01) ==
LOC: ER 08:56
DX: S39.012A Strain of muscle, fascia and tendon of lower back, initial encounter (principal); S16.1XXA Strain of muscle, fascia and tendon at neck level, initial encounter; M25.512 Pain in left shoulder; V89.2XXA Person injured in unspecified motor-vehicle accident, traffic, initial encounter; F17.200 Nicotine dependence, unspecified, uncomplicated
CPT/HCPCS: 72070; 72110; 72125; 99284

== ENCOUNTER 2020-07-24 11:57 | Emergency (ER) | payer MEDICAID ==
[2020-07-24] MEDS ORDERED: NORMAL SALINE 1000 ML 1,000 ML IV ONE (12:48)
[2020-07-24] MEDS ORDERED: ONDANSETRON 4 MG TAB.RAPDIS PO ONE (12:49)
[2020-07-24] MEDS ORDERED: KETOROLAC TROMETHAMINE INJ/PF 30 MG/1 ML SDV IV ONE (12:49)
[2020-07-24] MEDS ORDERED: MORPHINE SULFATE 10 MG/ML INJ IV ONE ×2 (12:49→18:00)
[2020-07-24 13:23] LABS: ABSOLUTE BASOPHILS # (AUTO) 0.1 10^3/uL (0.0-0.2); ABSOLUTE EOSINOPHILS # (AUTO) 0.1 10^3/uL (0.0-0.6); ABSOLUTE LYMPHOCYTES (AUTO) 1.3 10^3/uL (0.5-4.7); ABSOLUTE MONOCYTES (AUTO) 0.5 10^3/uL (0.1-1.4); ABSOLUTE NEUT (AUTO) 7.9 10^3/uL (1.7-8.2); BASOPHILS % (AUTO) 0.5 % (0-2); HEMATOCRIT 37.3 % (36.0-47.0); HEMOGLOBIN 12.6 g/dL (12.0-15.5); MEAN CORPUSCULAR HEMOGLOBIN 31.1 pg (27.0-33.4); MEAN CORPUSCULAR VOLUME 92 fl (80-97); MONOCYTES % (AUTO) 4.8 % (3-13); PLATELET COUNT 307 10^3/uL (150-450); RED BLOOD COUNT 4.07 10^6/uL (3.72-5.28); RED CELL DISTRIBUTION WIDTH 13.5 % (11.5-14.0); SEGMENTED NEUTROPHILS % (AUTO) 80.7 % (42-78); TOTAL CELLS COUNTED % (AUTO) 100 %; WHITE BLOOD COUNT 9.8 10^3/uL (4.0-10.5)
[2020-07-24 13:37] LABS: ALBUMIN 4.5 g/dL (3.5-5.0); ALKALINE PHOSPHATASE 45 U/L (38-126); ANION GAP 10 (5-19); ASPARTATE AMINO TRANSFERASE 26 U/L (14-36); BILIRUBIN,DIRECT 0.2 mg/dL (0.0-0.4); BLOOD UREA NITROGEN 8 mg/dL (7-20); CALCIUM 9.4 mg/dL (8.4-10.2); CARBON DIOXIDE 22 mmol/L (22-30); CHLORIDE 105 mmol/L (98-107); GLUCOSE 108 mg/dL (75-110); POTASSIUM 4.4 mmol/L (3.6-5.0); TOTAL PROTEIN 7.2 g/dL (6.3-8.2)
[2020-07-24 14:13] LABS: APPEARANCE,URINE SLIGHTLY-CLOUDY; BILIRUBIN,URINE NEGATIVE (NEGATIVE); COLOR,URINE YELLOW; GLUCOSE, URINE NEGATIVE (NEGATIVE); KETONES,URINE TRACE mg/dL (NEGATIVE); PROTEIN,URINE 30 mg/dL (NEGATIVE); URINE SPECIFIC GRAVITY 1.024
--- NOTE | 2020-07-24 14:28 | RADIOLOGY REPORT (SQ) ---
EXAM DESCRIPTION: U/S NON-OB PELVIS TV W/O DOP IMAGES COMPLETED DATE/TIME: 07/24/2020 1:48 pm REASON FOR STUDY: bleeding/pain COMPARISON: None. TECHNIQUE: Dynamic and static grayscale images acquired of the pelvis via transvaginal approach and recorded on PACS. Additional selected color Doppler and spectral images recorded. LIMITATIONS: None. FINDINGS: UTERUS: The uterus is oriented retroverted and it measures 7.7 x 7.2 x 5.8 cm. The echote xture of the myometrium is homogeneous. ENDOMETRIAL STRIPE: The endometrial stripe measures 12 mm in thickness. CERVIX: The cervix measures 2 cm in length. RIGHT OVARY AND DOPPLER: The right ovary measures 3.5 x 2 x 2.5 cm and on Doppler there is intact art erial inflow and venous outflow within the ovarian stroma. There is no adnexal mass. LEFT OVARY AND DOPPLER: The left ovary measures 2.8 x 1.9 x 1.8 cm and on Doppler there is intact art erial inflow and venous outflow within the ovarian stroma. There is no adnexal mass. FREE FLUID: There is a trace amount of free fluid in the right adnexum. OTHER: There are prominent vessels in the left adnexum. IMPRESSION: 1. Homogeneous echotexture of the endometrium. 2. Normal endometrial thickness. 3. No evidence of ovarian torsion. 4. Prominent parametrial vessels in the left adnexum - in the proper clinical setting this could rep resent pelvic congestion syndrome. TECHNICAL DOCUMENTATION: JOB ID: [id number] 2010 [employer]- All Rights Reserved Rev Reading location - IP/workstation name: [email or web address]
[2020-07-24] MEDS ORDERED: METOCLOPRAMIDE HCL INJ/PF 10 MG/2 ML SDV IV ONE (15:03)
--- NOTE | 2020-07-24 17:58 | ER Document Report ---
ED General - General Chief Complaint: Vaginal Bleeding Stated Complaint: VOMITING,CHILLS,FEVER,VAGINAL BLEEDING Time Seen by Provider: 07/24/20 12:23 Mode of Arrival: Ambulatory Information source: Patient TRAVEL OUTSIDE OF THE [place] IN LAST 30 DAYS: No - HPI Notes: Patient presents with abdominal pain and vaginal bleeding. She states this is been going on for proximally 3 weeks. Is been intermittent. The pain is been moderate to severe and crampy. Nothing makes it better or worse. It radiates to her lower back. She states she is not that she knows of. She does not believe she has any type of 60 transmitted disease. There is been some nausea no significant problems with stool or urine. She states that she has had several C-sections but no other abdominal surgeries. No fevers. - Related Data Allergies/Adverse Reactions: No Known Allergies Allergy (Verified 07/24/20 12:47) Past Medical History - General Information source: Patient - Social History Smoking Status: Never Smoker Chew tobacco use (# tins/day): No Frequency of alcohol use: Rare Drug Abuse: None Family History: Reviewed & Not Pertinent Pulmonary Medical History: Denies: Hx Tuberculosis Renal/ Medical History: Denies: Hx Peritoneal Dialysis GI Medical History: Reports: Hx Gastroesophageal Reflux Disease, Hx Ulcer - 2008. Denies: Hx Hiatal Hernia Skin Medical History: Reports Hx Cellulitis Psychiatric Medical History: Reports: Hx Attention Deficit Hyperactivity Disorder, Hx Bipolar Disorder, Hx Depression Denies: Hx Schizophrenia Past Surgical History: Reports: Hx Adenoidectomy, Hx Section - x2, Hx Tonsillectomy - Immunizations Immunizations up to date: Yes Hx Diphtheria, Pertussis, Tetanus Vaccination: Yes - 06/13/2019 Review of Systems - Review of Systems Constitutional: Malaise. denies: Chills Cardiovascular: denies: Chest pain, Palpitations Respiratory: denies: Cough, Short of breath -: Yes All other systems reviewed and negative Physical Exam - Vital signs Vitals: Temp Pulse Resp BP Pulse Ox 98.2 F 72 16 110/62 100 07/24/20 12:11 07/24/20 12:11 07/24/20 12:11 07/24/20 12:11 07/24/20 12:11 Interpretation: Normal - General General appearance: Appears well, Alert - HEENT Head: Normocephalic, Atraumatic Eyes: Normal Pupils: PERRL - Respiratory Respiratory status: No respiratory distress Chest status: Nontender Breath sounds: Normal Chest palpation: Normal - Cardiovascular Rhythm: Regular Heart sounds: Normal auscultation Murmur: No - Abdominal Inspection: Normal Distension: No distension Bowel sounds: Normal Tenderness: Tender - Mild to moderate diffuse tenderness to palpation. No surgical abdominal signs on exam. Organomegaly: No organomegaly - Back Back: Normal, Nontender - Extremities General upper extremity: Normal inspection, Nontender, Normal color, Normal ROM, Normal temperature General lower extremity: Normal inspection, Nontender, Normal color, Normal ROM, Normal temperature, Normal weight bearing. No: Tl's sign - Neurological Neuro grossly intact: Yes Cognition: Normal Orientation: AAOx4 Javier Coma Scale Eye Opening: Spontaneous Javier Coma Scale Verbal: Oriented Javier Coma Scale Motor: Obeys Commands Javier Coma Scale Total: 15 Speech: Normal Motor strength normal: LUE, RUE, LLE, RLE Sensory: Normal - Psychological Associated symptoms: Normal affect, Normal mood - Skin Skin Temperature: Warm Skin Moisture: Dry Skin Color: Normal Course - Re-evaluation Re-evalutation: 07/24/20 17:54 Patient presents with vaginal bleeding. She is with a beta of 1100. Ultrasound shows no evidence of tubal or free fluid. Her exam is not consistent with a surgical abdomen. Her vitals are stable. The patient will f ollow-up in the office tomorrow with Dr. Sarmiento. I did discuss the care of the patient with him. - Vital Signs Vital signs: Temp Pulse Resp BP Pulse Ox 99.3 F 98 15 115/73 97 07/24/20 14:33 07/24/20 14:33 07/24/20 14:33 07/24/20 14:33 07/24/20 14:33 - Laboratory Result Diagrams: 07/24/20 13:00 07/24/20 13:00 Laboratory results interpreted by me: 07/24/20 07/24/20 07/24/20 13:00 13:00 13:00 Seg Neutrophils % 80.7 H Creatinine 0.51 L Serum HCG, Qual POSITIVE H Beta HCG, Quant Urine Protein Urine Ketones Urine Blood Urine Urobilinogen 07/24/20 07/24/20 13:00 13:00 Seg Neutrophils % Creatinine Serum HCG, Qual Beta HCG, Quant 1161.90 H Urine Protein 30 H Urine Ketones TRACE H Urine Blood LARGE H Urine Urobilinogen 2.0 H - Diagnostic Test Radiology reviewed: Image reviewed, Reports reviewed Discharge - Discharge Clinical Impression: Incomplete Condition: Stable Disposition: HOME, SELF-CARE Instructions: Miscarriage (OM) Additional Instructions: Please call Dr. Sarmiento's office first thing in the morning to arrange follow-up. He stated he would like to see you tomorrow. Prescriptions: Hydrocodone/Acetaminophen [Reading 5-325 mg Tablet] 1 tab PO Q6 PRN 3 Days #12 tablet PRN Reason: For Pain Forms: Return to Work Referrals: PAMELA SARMIENTO MD [ACTIVE STAFF] - Follow up tomorrow
[2020-07-24 18:16] VITALS: BP 110/60
== END 2020-07-24 18:16 | disposition home or self-care (01) ==
LOC: ER 11:57
DX: O03.4 Incomplete spontaneous abortion without complication (principal); R10.9 Unspecified abdominal pain
CPT/HCPCS: 96376; 99285; 96361; 96374; 96375; 86900; 86901; 36415; 84702; 84703; 85025; 80053; 81001; 76830; S0119; J1885; J2765; J2270; J7030

== ENCOUNTER 2020-07-25 15:45 | Observation (INO) | payer MEDICAID ==
[2020-07-25 18:05] LABS: ABSOLUTE EOSINOPHILS # (AUTO) 0.3 10^3/uL (0.0-0.6); ABSOLUTE LYMPHOCYTES (AUTO) 1.6 10^3/uL (0.5-4.7); ABSOLUTE MONOCYTES (AUTO) 0.5 10^3/uL (0.1-1.4); ABSOLUTE NEUT (AUTO) 3.4 10^3/uL (1.7-8.2); BASOPHILS % (AUTO) 0.7 % (0-2); EOSINOPHILS % (AUTO) 4.4 % (0-6); HEMATOCRIT 36.5 % (36.0-47.0); HEMOGLOBIN 12.3 g/dL (12.0-15.5); LYMPHOCYTES % (AUTO) 27.8 % (13-45); MEAN CORPUSCULAR HEMOGLOBIN 30.8 pg (27.0-33.4); MEAN CORPUSCULAR HGB CONC 33.8 g/dL (32.0-36.0); MEAN CORPUSCULAR VOLUME 91 fl (80-97); MONOCYTES % (AUTO) 8.4 % (3-13); PLATELET COUNT 281 10^3/uL (150-450); RED CELL DISTRIBUTION WIDTH 13.6 % (11.5-14.0); SEGMENTED NEUTROPHILS % (AUTO) 58.7 % (42-78); TOTAL CELLS COUNTED % (AUTO) 100 %; WHITE BLOOD COUNT 5.8 10^3/uL (4.0-10.5)
[2020-07-25] MEDS: DEXTROSE 5%-1/2 NORMAL SALINE 1,000 ML IV PRN (18:45)
[2020-07-25] MEDS ORDERED: PROMETHAZINE HCL INJ 25 MG/1 ML VIAL IV ONE (22:00)
[2020-07-25] MEDS ORDERED: MORPHINE SULFATE 10 MG/ML INJ IV ONE ×2 (22:00)
[2020-07-26] MEDS: DEXTROSE 5%-1/2 NORMAL SALINE 1,000 ML IV PRN (10:03)
[2020-07-26 10:33] LABS: HEMATOCRIT 34.2 % (36.0-47.0); HEMOGLOBIN 11.5 g/dL (12.0-15.5); MEAN CORPUSCULAR HEMOGLOBIN 30.4 pg (27.0-33.4); MEAN CORPUSCULAR HGB CONC 33.6 g/dL (32.0-36.0); MEAN CORPUSCULAR VOLUME 91 fl (80-97); PLATELET COUNT 237 10^3/uL (150-450); RED BLOOD COUNT 3.78 10^6/uL (3.72-5.28); RED CELL DISTRIBUTION WIDTH 13.2 % (11.5-14.0); WHITE BLOOD COUNT 4.2 10^3/uL (4.0-10.5)
[2020-07-26] MEDS ORDERED: PHENYLEPHRINE HCL INJ/PF 10 MG/1 ML SDV ONE (10:56)
[2020-07-26] MEDS ORDERED: SUCCINYLCHOLINE CHLORIDE INJ 200 MG/10 ML VIAL ONE (10:56)
[2020-07-26] MEDS ORDERED: LIDOCAINE 2% INJ-PF (20 MG/ML) 2 ML AMPUL ONE (10:56)
[2020-07-26] MEDS ORDERED: ONDANSETRON HCL INJ/PF 4 MG/2 ML SDV ONE (10:56)
[2020-07-26] MEDS ORDERED: GLYCOPYRROLATE 1 MG/5 ML VIAL ONE (10:56)
[2020-07-26] MEDS ORDERED: DEXAMETHASONE SOD PHOSPHATE INJ 4 MG/1 ML VIAL ONE (10:56)
[2020-07-26] MEDS ORDERED: KETOROLAC TROMETHAMINE 60 MG/2 ML SDV ONE (10:56)
[2020-07-26] MEDS ORDERED: NEOSTIGMINE METHYLSULFATE 10 MG/10 ML VIAL ONE (10:56)
[2020-07-26] MEDS ORDERED: ROCURONIUM BROMIDE INJ 50 MG/5 ML VIAL IV ONE (10:56)
[2020-07-26] MEDS ORDERED: FENTANYL CITRATE INJ/PF 100 MCG/2 ML AMPUL IV ONE (11:44)
--- NOTE | 2020-07-26 11:44 | PDOC PROGRESS REPORT ---
Subjective Progress Note for:: 07/25/20 Subjective:: now 5/5 pain, right lower quadrant. Reason For Visit: UNKNOWN LOCATION/PELVIC PAIN Physical Exam - Physical Exam Vital Signs: Temp Pulse Resp BP Pulse Ox 97.6 F 59 L 16 87/40 L 100 07/26/20 11:06 07/26/20 11:06 07/26/20 11:06 07/26/20 11:06 07/26/20 11:06 Intake & Output 07/25/20 07/26/20 07/27/20 06:59 06:59 06:59 Intake Total 0 1000 Balance 0 1000 Weight 52 kg General appearance: PRESENT: mild distress, well-developed, well-nourished Head exam: PRESENT: atraumatic, normocephalic Respiratory exam: PRESENT: clear to auscultation layo, symmetrical, unlabored Cardiovascular exam: PRESENT: RRR. ABSENT: diastolic murmur, rubs, systolic murmur Pulses: PRESENT: normal dorsalis pedis pul, +2 pedal pulses bilateral GI/Abdominal exam: PRESENT: guarding, normal bowel sounds, rebound, soft, tenderness. ABSENT: distended, mass, organolmegaly Rectal exam: PRESENT: deferred Extremities exam: PRESENT: full ROM. ABSENT: calf tenderness, clubbing, pedal edema Neurological exam: PRESENT: alert, awake, oriented to person, oriented to place, oriented to time, oriented to situation, CN II-XII grossly intact. ABSENT: motor sensory deficit Psychiatric exam: PRESENT: appropriate affect, normal mood. ABSENT: homicidal ideation, suicidal ideation Result Laboratory Results: 07/26/20 10:24 07/25/20 07/25/20 07/26/20 17:30 17:30 10:24 WBC 5.8 4.2 RBC 4.00 3.78 Hgb 12.3 11.5 L Hct 36.5 34.2 L MCV 91 91 MCH 30.8 30.4 MCHC 33.8 33.6 RDW 13.6 13.2 Plt Count 281 237 Seg Neutrophils % 58.7 Blood Type A POSITIVE Antibody Screen NEGATIVE Assessment & Plan - Diagnosis (1) Pelvic pain affecting Qualifiers: Trimester: first trimester Qualified Code(s): O26.891 - Other specified related conditions, first trimester; R10.2 - Pelvic and perineal pain Is this a current diagnosis for this admission?: Yes Plan: BHCG not rising approp. worsening pain. Reviewed yesterday with patient recommendation for surgeyr due to high suspicion of ectopic. Pt agrees to surgery at this time. Rapid COVID now. Type and cross x 2 units. Fentanyl 75mcg given for pain. (2) of unknown anatomic location Is this a current diagnosis for this admission?: Yes Plan: reviewed with patient concern for ectopic - need to proceed to OR now. VS stable at this time. COVD now - Time Time Spent with patient: Less than 15 minutes Medications reviewed and adjusted accordingly: Yes Anticipated discharge: Home Anticipated DC Timeframe: within 48 hours - Inpatient Certification Based on my medical assessment, after consideration of the patient's comorbidities, presenting symptoms, or acuity I expect that the services needed warrant INPATIENT care.: Yes I certify that my determination is in accordance with my understanding of Medicare's requirements for reasonable and necessary INPATIENT services [42 CFR 412.3e].: Yes Medical Necessity: Need For IV Fluids, Need for IV Antibiotics, Need for Surgery
[2020-07-26] MEDS ORDERED: MIDAZOLAM 2 MG/2 ML INJ ONE (13:29)
[2020-07-26] MEDS ORDERED: FENTANYL CITRATE INJ/PF 250 MCG/5 ML AMPULE ONE (13:29)
[2020-07-26] MEDS ORDERED: MORPHINE SULFATE 10 MG/ML INJ ONE (13:29)
[2020-07-26] MEDS ORDERED: PROPOFOL INJ 200 MG/20 ML VIAL IV ONE (13:30)
[2020-07-26] MEDS ORDERED: CEFAZOLIN INJ 1 GM VIAL ONE (13:42)
[2020-07-26] MEDS ORDERED: BUPIVACAINE HCL 0.25 % INJ/PF (2.5 MG/1 ML) 30 ML VIAL ONE (14:11)
[2020-07-26] MEDS ORDERED: OXYCODONE-ACETAMINOPHEN 5-325 MG TABLET PO PRN ×2 (14:18)
[2020-07-26] MEDS ORDERED: FENTANYL CITRATE INJ/PF 100 MCG/2 ML AMPUL IV PRN (14:18)
[2020-07-26] MEDS ORDERED: DIPHENHYDRAMINE HCL 50 MG/ML VIAL IV PRN (14:18)
[2020-07-26] MEDS ORDERED: PROMETHAZINE HCL INJ 25 MG/1 ML VIAL IV PRN ×2 (14:18)
[2020-07-26] MEDS ORDERED: MEPERIDINE HCL/PF INJ 25 MG/1 ML DISP.SYRIN IV PRN (14:18)
[2020-07-26] MEDS ORDERED: MORPHINE SULFATE 10 MG/ML INJ IV PRN (14:18)
[2020-07-26] MEDS ORDERED: RINGERS SOLUTION,LACTATED 1,000 ML IV PRN (14:51)
[2020-07-26] MEDS ORDERED: KETOROLAC TROMETHAMINE INJ/PF 30 MG/1 ML SDV IV PRN (14:51)
--- NOTE | 2020-07-26 15:00 | Brief Operative Note ---
BRIEF OPERATIVE REPORT DATE OF SURGERY: 07/26/20 TIME OF SURGERY: 14:00 PREOPERATIVE DIAGNOSIS: of unknown location, pelvic pain, suspect right ectopic POSTOPERATIVE DIAGNOSIS: Right Tubal Ectopic, hemoperitoneum SURGEON: DAVID NIEVES 1ST PROFESSOR OF ENGLISH: DARCI CARRASQUILLO FINDINGS: approximately 100ml of hemoperitoneum, adhesions of omentum to anterior abdominal wall. distended right fallopian tube with hemorrhage extending from right tube, normal right ovary, normal left fallopian tube/ovary, boggy uterus. COMPLICATIONS: none ESTIMATED BLOOD LOSS: 100 TISSUE REMOVED OR ALTERED: right fallopian tube with ectopic TECHNICAL PROCEDURE: Operative Laparoscopy with Right salpingectomy, Lysis of adhesions
--- NOTE | 2020-07-26 15:02 | Operative Report ---
Operative Report DATE OF SURGERY: 07/26/20 PREOPERATIVE DIAGNOSIS: of unknown location, pelvic pain, suspect rig ht ectopic POSTOPERATIVE DIAGNOSIS: Right Tubal Ectopic, hemoperitoneum OPERATION: Operative laparoscopy with Right Salpingectomy and Lysis of Adhesions SURGEON: DAVID NIEVES 1ST BULL GANG SUPERVISOR: DARCI CARRASQUILLO ANESTHESIA: GA TISSUE REMOVED OR ALTERED: right fallopian tube and ectopic COMPLICATIONS: None ESTIMATED BLOOD LOSS: 100 INTRAOPERATIVE FINDINGS: approximately 100ml of hemoperitoneum, adhesions of omentum to anterior abdominal wall. distended right fallopian tube with hemorrhage extending from right tube, normal right ovary, normal left fallopian tube/ovary, boggy uterus. PROCEDURE: Anesthesiologist: Ernie Mims MD, Jeffrey Berrios CRNA Estimated blood loss: [100ml] IV fluids: [1300ml] Urine output: [50ml] Indications: [30yo with unknown ega due to unknown LMP. She reports that she has been bleeding for 3 weeks and thought that she was having a menses. She report history of 3 sections and history of endometriosis. She went to the ER on 07/24 due to pain 5/5 in RLQ and reports pain was so bad she was passing out several times. She was told in the ER that she had a miscarriage and to f/u with us in the office. ON 07/25 I saw her with peritoneal findings and very high concern for ectopic with HCG 1161 on 07/24 and 1180 on 07/25. Today HCG was 1115. I went in to review HCG again with patient now that today's had returned and she was in tears doubled over with 5/5 pain. Reviewed need for urgent surgery due to concern for rupturing ectopic. COVID rapid done and negative. Risks, benefits, alternatives were reviewed and she desires to proceed with planned procedure.] Procedure: The patient was taken to the operating room where general anesthesia was obtained without difficulty. The patient was then examined under anesthesia with findings as noted above with a boggy retroverted uterus. She was then placed in dorsal supine lithotomy position and prepped and draped in the normal sterile fashion. [place] speculum was then placed in the patient's vagina and the anterior lip of the cervix grasped with a single-tooth tenaculum. An [place] uterine manipulator was then advanced into the uterus to provide a means of manipulation of the uterus. The speculum and tenaculum were then removed from the patient's cervix and vagina. Attention was then turned to the patient's abdomen where a 5 mm infraumbilical skin incision was then made. The Optiview trocar with 0 laparoscope was then advanced without difficulty under direct visualization with the Optiview trocar. This was performed while tenting the abdominal wall and these will fashion. Intraperitoneal placement was confirmed by the direct visualization. Pneumoperitoneum was then obtained with approximately 4 L carbon dioxide gas. Survey of the patient's abdomen and pelvis revealed findings as noted above. A second skin incision was then made approximately 3 cm superior 4 cm medial to the anterior superior iliac spine on the left and then a third skin incision was made approximately 3 cm superior to the lower incision. These incisions were made under direct visualization with the laparoscope. The second and third trochars were then advanced under direct visualization of the laparoscope at the sites. Hemoperitoneum noted. The right fallopian tube was noted to be significantly distended and tortuous with contained blood clot and ectopic. Blood actively coming from fimbria and tube tortuous around ovary. Once fallopian tube and ectopic on the right were excised with Ligasure from the cornu to fimbria then ovary surveryed and appeared normal. The right ovary was noted to be normal and vasculature remained intact to this ovary. Attention was then turned to the left adnexa which appeared normal. The right fallopian tube and ectopic were removed via endobag at umbilical site. All operative sites were visualized and noted to be hemostatic. The 2 additional trochars on the patient's left greater than removed under direct visualization. The 10 mm trocar was then removed after abdominal insufflation was removed. The fascia at the 10 mm trocar site was closed with 0 Vicryl on a UR 6 needle. The skin at all trocar sites were closed with 3-0 Monocryl in a subcuticular fashion with overlying Dermabond. Ancef 1 gram given IV preop. After completion of skin closure of the trocar sites attention was then turned to the vagina where the [place] uterine manipulator was removed and the bivalve speculum was replaced. Silver nitrate was applied to the tenaculum sites for hemostasis and the speculum was removed. Sponge lap needle and instrument counts were correct 3. The patient tolerated the procedure well and was taken to the recovery area awake and in stable condition.
[2020-07-26 15:53] LABS: CHLAM PCR NOT DETECTED (NOT DETECT)
[2020-07-26] MEDS ORDERED: CEFAZOLIN 1 GM/D5W RTU 1 GM/50 ML RTUPB IV SCH (18:00)
[2020-07-26 19:08] LABS: HEMATOCRIT 37.2 % (36.0-47.0); HEMOGLOBIN 12.5 g/dL (12.0-15.5); MEAN CORPUSCULAR HEMOGLOBIN 30.8 pg (27.0-33.4); MEAN CORPUSCULAR HGB CONC 33.7 g/dL (32.0-36.0); MEAN CORPUSCULAR VOLUME 92 fl (80-97); PLATELET COUNT 262 10^3/uL (150-450); RED BLOOD COUNT 4.06 10^6/uL (3.72-5.28); RED CELL DISTRIBUTION WIDTH 13.3 % (11.5-14.0)
[2020-07-26 19:09] LABS: WHITE BLOOD COUNT 11.3 10^3/uL (4.0-10.5)
--- NOTE | 2020-07-26 19:53 | PDOC DISCHARGE SUMMARY ---
Impression - Admit/DC Date/PCP Admission Date/Primary Care Provider: 07/25/20 15:45 DAVID NIEVES MD Discharge Date: 07/26/20 - Discharge Diagnosis (1) Ectopic , tubal Is this a current diagnosis for this admission?: Yes (2) Pelvic pain affecting Is this a current diagnosis for this admission?: Yes - Assessment Summary: 30yo with inapprop rising HCG and bleeding for 3 weeks. Acute abdominal findings and joon tot OR for ectopic - Additional Information Resuscitation Status: Full Code Discharge Diet: As Tolerated Discharge Activity: Activity As Tolerated, No Driving - while taking narcotics, No Lifting Over 10 Pounds, Pelvic Rest, No tub bath Referrals: DAVID NIEVES MD [Primary Care Provider] - Prescriptions: Oxycodone HCl/Acetaminophen [Percocet 5-325 mg Tablet] 1 tab PO Q6 7 Days #28 tab Home Medications: Oxycodone HCl/Acetaminophen [Percocet 5-325 mg Tablet] 1 tab PO Q6 7 Days #28 tab 07/26/20 History of Present Illiness History of Present Illness: RASHARD JOHNSON is a 30yo with inapprop rising HCG and bleeding for 3 weeks. Acute abdominal findings and joon tot OR for ectopic Hospital Course Hospital Course: 30yo with inapprop rising HCG and bleeding for 3 weeks. Acute abdominal findings and joon tot OR for ectopic Physical Exam - Physical Exam Vital Signs: Temp Pulse Resp BP Pulse Ox 98.0 F 69 16 103/58 L 98 07/26/20 18:19 07/26/20 18:19 07/26/20 18:19 07/26/20 18:19 07/26/20 18:19 Intake & Output 07/25/20 07/26/20 07/27/20 06:59 06:59 06:59 Intake Total 0 3240 Output Total 150 Balance 0 3090 Weight 52 kg General appearance: PRESENT: no acute distress, well-developed, well-nourished Head exam: PRESENT: atraumatic, normocephalic Respiratory exam: PRESENT: clear to auscultation layo, symmetrical, unlabored Cardiovascular exam: PRESENT: RRR. ABSENT: diastolic murmur, rubs, systolic murmur Pulses: PRESENT: normal dorsalis pedis pul, +2 pedal pulses bilateral GI/Abdominal exam: PRESENT: tenderness - approp postop, incision c/d/i. ABSENT: guarding, rebound Rectal exam: PRESENT: deferred Extremities exam: PRESENT: full ROM. ABSENT: calf tenderness, clubbing, pedal edema Neurological exam: PRESENT: alert, awake, oriented to person, oriented to place, oriented to time, oriented to situation, CN II-XII grossly intact. ABSENT: motor sensory deficit Psychiatric exam: PRESENT: appropriate affect, normal mood. ABSENT: homicidal ideation, suicidal ideation Skin exam: PRESENT: dry, intact, warm. ABSENT: cyanosis, rash Results Laboratory Results: WBC 11.3 10^3/uL (4.0-10.5) H D 07/26/20 18:28 RBC 4.06 10^6/uL (3.72-5.28) 07/26/20 18:28 Hgb 12.5 g/dL (12.0-15.5) 07/26/20 18:28 Hct 37.2 % (36.0-47.0) 07/26/20 18:28 MCV 92 fl (80-97) 07/26/20 18:28 MCH 30.8 pg (27.0-33.4) 07/26/20 18:28 MCHC 33.7 g/dL (32.0-36.0) 07/26/20 18:28 RDW 13.3 % (11.5-14.0) 07/26/20 18:28 Plt Count 262 10^3/uL (150-450) 07/26/20 18:28 Lymph % (Auto) 27.8 % (13-45) 07/25/20 17:30 [place] % (Auto) 8.4 % (3-13) 07/25/20 17:30 Eos % (Auto) 4.4 % (0-6) 07/25/20 17:30 Baso % (Auto) 0.7 % (0-2) 07/25/20 17:30 Absolute Neuts (auto) 3.4 10^3/uL (1.7-8.2) 07/25/20 17:30 Absolute Lymphs (auto) 1.6 10^3/uL (0.5-4.7) 07/25/20 17:30 Absolute Monos (auto) 0.5 10^3/uL (0.1-1.4) 07/25/20 17:30 Absolute Eos (auto) 0.3 10^3/uL (0.0-0.6) 07/25/20 17:30 Absolute Basos (auto) 0.0 10^3/uL (0.0-0.2) 07/25/20 17:30 Seg Neutrophils % 58.7 % (42-78) 07/25/20 17:30 Beta HCG, Quant 1115.50 mIU/mL (0.0-6.15) H 07/26/20 10:24 Total Beta HCG POSITIVE (NEGATIVE) 07/26/20 10:24 Chlamydia DNA (PCR) NOT DETECTED (NOT DETECT) 07/26/20 13:58 N.gonorrhoeae DNA (PCR) NOT DETECTED (NOT DETECT) 07/26/20 13:58 SARS-CoV-2 (PCR) NEGATIVE (NEGATIVE) 07/26/20 11:36 Blood Type A POSITIVE 07/25/20 17:30 Blood Type Confirm A POSITIVE 07/25/20 17:30 Antibody Screen NEGATIVE 07/25/20 17:30 Crossmatch See Detail 07/25/20 17:30 Stroke Is this a Stroke Patient?: No Acute Heart Failure Is this a Heart Failure Patient?: No
[2020-07-26 20:15] VITALS: BP 102/54
== END 2020-07-26 20:50 | disposition home or self-care (01) ==
LOC: 2N 15:45
PROVIDERS: ADMIT Student in an Organized Health Care Education/Training Program; ATTEND Student in an Organized Health Care Education/Training Program
DX: O00.101 Right tubal pregnancy without intrauterine pregnancy (principal); K66.1 Hemoperitoneum; Z67.90 Unspecified blood type, Rh positive; Z03.818 Encounter for observation for suspected exposure to other biological agents ruled out; Z87.42 Personal history of other diseases of the female genital tract
CPT/HCPCS: 59151; 86900; 86901; 36415 ×2; 86850; 84702; 85025; 85027; 87635; 86920; 87491; 87591; 88305 ×2; 99140; 00840; G0378 ×2; J2250; J0690 ×2; J3490 ×4; J1100; J1885; J3010 ×2; J2270; J2710; J2370; J2550; J0330; J2405; J2704; C9803; 840

== ENCOUNTER → 2020-07-25 | Outpatient (CLI) | payer MEDICAID | LOC: OD 10:52 | PROVIDERS: ATTEND Student in an Organized Health Care Education/Training Program | DX: O03.9 Complete or unspecified spontaneous abortion without complication (principal) | CPT/HCPCS: 36415; 84702 ==